=== PATIENT | male | born 1990 | race African-American/Black ===

== ENCOUNTER 2018-01-09 10:37 | Emergency (ER) | payer SELFPAY ==
[2018-01-09 10:40] VITALS: BP 134/88; PULSE 58; RESP 16; TEMP 37.1
--- NOTE | 2018-01-09 10:45 | DI.RAD_ITS ---
SYMPTOM/DIAGNOSIS: RT LATERAL KNEE PAIN, JUST PROXIMAL TO KNEE. TRAUMA RIGHT KNEE: Four views. Comparison 07/22/15 No acute fracture or dislocation is seen. Mild to moderate degenerative changes are seen in all 3 joint compartments with joint space narrowing and periarticular spurring. There is some flattening of the articular surfaces in the lateral femoral tibial joint. There does appear to be a joint effusion in the suprapatellar region. The soft tissues are otherwise unremarkable. IMPRESSION: 1. No acute fracture or dislocation. 2. Suprapatellar joint effusion 3. Mild to moderate degenerative changes of the right knee.
--- NOTE | 2018-01-09 10:46 | W.ED.GENAD ---
Discharge Plan Disposition Patient Disposition: HOME Condition: Good Discharge Details Chief Complaint: Orthopedic Clinical Impression: Right knee sprain Primary Care Provider: None,None ED Provider: Troy Navas Home Meds and New Rx's Prescriptions: New acetaminophen [Mapap Extra Strength] 500 MG tablet 1,000 mg PO Q6H 5 Days Qty: 60 RF: 0 lidocaine [Lidoderm] 1 PATCH patch 1 patch Topical Q24H Qty: 4 RF: 0 ibuprofen [Motrin IB] 200 MG tablet 600 mg PO Q6H 5 Days Qty: 60 RF: 0 Discharge Instructions Instructions: Knee Sprain (ED), RICE Therapy (ED) Additional Instructions: Please take medications as directed. Please use crutches if needed. Please continue to use ice, Tylenol, Motrin, and an Tylor wrap at home for control of the pain. If you notice any worsening of your symptoms, or any new symptoms such as vomiting, diarrhea, fever, chills, shortness of breath, chest pain, numbness, weakness, or fainting , please return immediately to the emergency department for reevaluation. Please follow up with your primary care provider as soon as possible for reassessment and reevaluation. As always, it was a pleasure participating in your medical care today. Stand Alone Forms: Work Release Discharge Data Discharge Date/Time-TO BE ENTERED AT DEPARTURE: 01/09/18 11:45 Medical Decision Making This is a very pleasant 27-year-old -[place] male with a previous surgical history of a lateral menisci repair on his right knee, who presents today for right-sided knee pain. The patient was playing basketball last night when he was struck in his knee, and then hit it a second time when he hit the floor. Physical exam demonstrates minimal swelling of the right knee, with some associated swelling and point tenderness just proximal to it in the lateral aspect of the knee. No patellar tenderness. No crepitus with movement. Physical exam shows signs and symptoms concerning for small hematoma and bruise. No evidence of significant laxity or weakness. Signs and symptoms appear clinically consistent with a strain of the right knee. Because of his previous surgery and the mechanism we will get an x-ray to rule out any fracture. We will treat with NSAIDs, and a Lidoderm patch. Patient does work at [employer] and states that he does do a mild to moderate amount of walking throughout the day. X-ray results have returned and do demonstrate evidence of a suprapatellar effusion. There appears to be no evidence of acute bony fracture. This does appear to be clinically consistent with his exam. Feel his pain is most likely secondary to his effusion and trauma. We will continue to treat with NSAID therapy, recommendations for ice, rest, and compression. We did offer crutches, and the patient made it very clear that he does not want any crutches at this time. Patient is able to ambulate well without difficulty. We discussed the importance of close follow-up with his PCP, as well as red flags which to immediately return the patient understands. With no signs of ligamentous laxity, no evidence of bony fracture, I feel he can be safely discharged home with close PCP follow-up. I have extensively reviewed the treatment plan and discharge instructions with the patient and their family. I have addressed all patient concerns at this time. The patient and family was made aware of what symptoms to monitor for that would warrant a return to the emergency department. Discussed the plan with the patient and family, they demonstrate verbal understanding and agreement with our assessment and plan at this time. IMPRESSION: 1. No acute fracture or dislocation. 2. Suprapatellar joint effusion 3. Mild to moderate degenerative changes of the right knee. HPI General Date/Time Provider Initiated Documentation: 01/09/18 10:38. HPI Narrative: This is a very pleasant 27-year-old -[place] male who has a past medical history of asthma as well as a surgical repair of his right lateral menisci a few years ago after an injury. He presents today for evaluation of knee pain. Patient states that last night he was playing basketball, struck the lateral aspect of his right knee against an opponent, fell to the ground and then hit it again. Since then he has had moderate pain on the right lateral aspect of the knee just proximal to the knee itself. He has had mild swelling, in association with the pain. Pain is made worse with movement, improved by nothing. He denies any numbness or tingling radiating down the leg but does have some associated tingling at the site of pain. He denies any hip pain, proximal leg pain or distal leg pain aside for the specified location. He denies any other aggravating or relieving factors. Patient denies hearing any new pops, denies any history of dislocation, denies any IV or illicit drug use or pertinent family history. He has no other complaints at this time. Related Data Home Medications Medication Instructions Recorded Confirmed acetaminophen [Mapap Extra 1,000 mg PO Q6H 5 Days #60 tab 01/09/18 Strength] ibuprofen [Motrin Ib] 600 mg PO Q6H 5 Days #60 tab 01/09/18 lidocaine [Lidoderm] 1 patch TOPICAL Q24H #4 patch 01/09/18 Previous Rx's Medication Instructions Recorded acetaminophen [Mapap Extra 1,000 mg PO Q6H 5 Days #60 tab 01/09/18 Strength] ibuprofen [Motrin Ib] 600 mg PO Q6H 5 Days #60 tab 01/09/18 lidocaine [Lidoderm] 1 patch TOPICAL Q24H #4 patch 01/09/18 Allergies Allergy/AdvReac Type Severity Reaction Status Date / Time No Known Allergies Allergy Unverified 01/09/18 10:44 General Stated Complaint: Orthopedic IVIS: 4 Review of Systems Review of Systems All systems reviewed & are unremarkable except as noted in HPI and below PFSH Arthroplasty of knee (08/19/15) Social History Smoking/Tobacco Use Status: Never Surgical History Arthroplasty of knee (08/19/15) Social History Smoking/Tobacco Use Status: Never Exam Narrative Exam Narrative: 1.Const: Well-nourished, Well-developed, appearing stated age 2.Eyes: PERRL, no conjunctival injection, and symmetrical lids. 3.ENT: Atraumatic external nose and ears. Moist MM. Neck: Symmetric, trachea midline, No thyromegaly. 4.CVS: +S1/S2, No murmurs or gallops. Peripheral pulses 2+ and equal in all extremities. Brisk capillary refill in all extremities. 5.RESP: Unlabored respiratory effort. Clear to auscultation bilaterally. No wheezes rales or rhonchi 6.GI: Soft, Nontender/Nondistended, No hepatosplenomegaly. No guarding or rebound. 7.MSK: No gross deformities or discolorations or lesions. Tolerates full range of motion of extremities without tenderness. All compartments of upper and lower extremities are soft with no tenderness. Vascular exam demonstrates brisk capillary refill and intact pulses in all extremities. Patient does demonstrate a notable broke bony prominence over the medial component of his right knee, which she states is been present since his previous surgery. Minimal swelling around the right knee, as well as a small hematoma on the proximal right lateral component of the right knee. This is the area consistent with the patient's pain which is reproducible. No significant pain with passive flexion or extension. Minimal pain with passive extension. Negative Alen's test, no laxity or tenderness with varus or valgus stressing, no laxity with anterior and posterior drawer testing. No other significant abnormalities of the knee. Patient ambulates with a mild limp 8.Skin: Warm, Dry. No rashes or lesions. 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 Sensation grossly intact, no focal neurologic deficits. 10.Psych: (AAO) x3. Appropriate mood and affect Course Vital Signs Temperature 37.1 C 01/09/18 10:40 Pulse 58 L 01/09/18 10:40 Respiratory Rate 16 01/09/18 10:40 Blood Pressure 134/88 01/09/18 10:40 Temperature 37.1 C 01/09/18 10:40 Temperature Source Skin 01/09/18 10:40 Pulse 58 L 01/09/18 10:40 Respiratory Rate 16 01/09/18 10:40 Respiratory Effort 01/09/18 10:42 Blood Pressure 134/88 01/09/18 10:40 Blood Pressure Position Sitting 01/09/18 10:40 Oxygen Delivery Method Room Air 01/09/18 10:40 Oxygen Flow Rate 0 01/09/18 10:40 Pain Level 6 01/09/18 10:42
[2018-01-09] MEDS: Ibuprofen 800 MG TAB PO (10:49)
[2018-01-09] MEDS: Acetaminophen 500 MG TAB 1000 MG PO (10:49)
[2018-01-09] MEDS: Lidocaine 5% Patch 1 PATCH TP (10:50)
--- NOTE | 2018-01-09 10:51 | ED.GENADUL_ITS ---
Discharge Plan Disposition Patient Disposition: HOME Condition: Good Discharge Details Chief Complaint: Orthopedic Clinical Impression: Right knee sprain Primary Care Provider: None,None ED Provider: Troy Navas Home Meds and New Rx's Prescriptions: New acetaminophen [Mapap Extra Strength] 500 MG tablet 1,000 mg PO Q6H 5 Days Qty: 60 RF: 0 lidocaine [Lidoderm] 1 PATCH patch 1 patch Topical Q24H Qty: 4 RF: 0 ibuprofen [Motrin IB] 200 MG tablet 600 mg PO Q6H 5 Days Qty: 60 RF: 0 Discharge Instructions Instructions: Knee Sprain (ED), RICE Therapy (ED) Additional Instructions: Please take medications as directed. Please use crutches if needed. Please continue to use ice, Tylenol, Motrin, and an Tylor wrap at home for control of the pain. If you notice any worsening of your symptoms, or any new symptoms such as vomiting, diarrhea, fever, chills, shortness of breath, chest pain, numbness, weakness, or fainting , please return immediately to the emergency department for reevaluation. Please follow up with your primary care provider as soon as possible for reassessment and reevaluation. As always, it was a pleasure participating in your medical care today. Stand Alone Forms: Work Release Discharge Data Discharge Date/Time-TO BE ENTERED AT DEPARTURE: 01/09/18 11:45 Medical Decision Making This is a very pleasant 27-year-old -[place] male with a previous surgical history of a lateral menisci repair on his right knee, who presents today for right-sided knee pain. The patient was playing basketball last night when he was struck in his knee, and then hit it a second time when he hit the floor. Physical exam demonstrates minimal swelling of the right knee, with some associated swelling and point tenderness just proximal to it in the lateral aspect of the knee. No patellar tenderness. No crepitus with movement. Physical exam shows signs and symptoms concerning for small hematoma and bruise. No evidence of significant laxity or weakness. Signs and symptoms appear clinically consistent with a strain of the right knee. Because of his previous surgery and the mechanism we will get an x-ray to rule out any fracture. We will treat with NSAIDs, and a Lidoderm patch. Patient does work at [employer] and states that he does do a mild to moderate amount of walking throughout the day. X-ray results have returned and do demonstrate evidence of a suprapatellar effusion. There appears to be no evidence of acute bony fracture. This does appear to be clinically consistent with his exam. Feel his pain is most likely secondary to his effusion and trauma. We will continue to treat with NSAID therapy, recommendations for ice, rest, and compression. We did offer crutches , and the patient made it very clear that he does not want any crutches at this time. Patient is able to ambulate well without difficulty. We discussed the importance of close follow-up with his PCP, as well as red flags which to immediately return the patient understands. With no signs of ligamentous laxity , no evidence of bony fracture, I feel he can be safely discharged home with close PCP follow-up. I have extensively reviewed the treatment plan and discharge instructions with the patient and their family. I have addressed all patient concerns at this time. The patient and family was made aware of what symptoms to monitor for that would warrant a return to the emergency department. Discussed the plan with the patient and family, they demonstrate verbal understanding and agreement with our assessment and plan at this time. IMPRESSION: 1. No acute fracture or dislocation. 2. Suprapatellar joint effusion 3. Mild to moderate degenerative changes of the right knee. HPI General Date/Time Provider Initiated Documentation: 01/09/18 10:38 . HPI Narrative: This is a very pleasant 27-year-old -[place] male who has a past medical history of asthma as well as a surgical repair of his right lateral menisci a few years ago after an injury. He presents today for evaluation of knee pain. Patient states that last night he was playing basketball, struck the lateral aspect of his right knee against an opponent, fell to the ground and then hit it again. Since then he has had moderate pain on the right lateral aspect of the knee just proximal to the knee itself. He has had mild swelling, in association with the pain. Pain is made worse with movement, improved by nothing. He denies any numbness or tingling radiating down the leg but does have some associated tingling at the site of pain. He denies any hip pain, proximal leg pain or distal leg pain aside for the specified location. He denies any other aggravating or relieving factors. Patient denies hearing any new pops, denies any history of dislocation, denies any IV or illicit drug use or pertinent family history. He has no other complaints at this time. Related Data Home Medications Medication Instructions Recorded Confirmed acetaminophen [Mapap Extra 1,000 mg PO Q6H 5 Days #60 tab 01/09/18 Strength] ibuprofen [Motrin Ib] 600 mg PO Q6H 5 Days #60 tab 01/09/18 lidocaine [Lidoderm] 1 patch TOPICAL Q24H #4 patch 01/09/18 Previous Rx's Medication Instructions Recorded acetaminophen [Mapap Extra 1,000 mg PO Q6H 5 Days #60 tab 01/09/18 Strength] ibuprofen [Motrin Ib] 600 mg PO Q6H 5 Days #60 tab 01/09/18 lidocaine [Lidoderm] 1 patch TOPICAL Q24H #4 patch 01/09/18 Allergies Allergy/AdvReac Type Severity Reaction Status Date / Time No Known Allergies Allergy Unverified 01/09/18 10:44 General Stated Complaint: Orthopedic IVIS: 4 Review of Systems Review of Systems All systems reviewed & are unremarkable except as noted in HPI and below PFSH Arthroplasty of knee (08/19/15) Social History Smoking/Tobacco Use Status: Never Surgical History Arthroplasty of knee (08/19/15) Social History Smoking/Tobacco Use Status: Never Exam Narrative Exam Narrative: 1.Const: Well-nourished, Well-developed, appearing stated age 2.Eyes: PERRL, no conjunctival injection, and symmetrical lids. 3.ENT: Atraumatic external nose and ears. Moist MM. Neck: Symmetric, trachea midline, No thyromegaly. 4.CVS: +S1/S2, No murmurs or gallops. Peripheral pulses 2+ and equal in all extremities. Brisk capillary refill in all extremities. 5.RESP: Unlabored respiratory effort. Clear to auscultation bilaterally. No wheezes rales or rhonchi 6.GI: Soft, Nontender/Nondistended, No hepatosplenomegaly. No guarding or rebound. 7.MSK: No gross deformities or discolorations or lesions. Tolerates full range of motion of extremities without tenderness. All compartments of upper and lower extremities are soft with no tenderness. Vascular exam demonstrates brisk capillary refill and intact pulses in all extremities. Patient does demonstrate a notable broke bony prominence over the medial component of his right knee, which she states is been present since his previous surgery. Minimal swelling around the right knee, as well as a small hematoma on the proximal right lateral component of the right knee. This is the area consistent with the patient's pain which is reproducible. No significant pain with passive flexion or extension. Minimal pain with passive extension. Negative Alen's test, no laxity or tenderness with varus or valgus stressing , no laxity with anterior and posterior drawer testing. No other significant abnormalities of the knee. Patient ambulates with a mild limp 8.Skin: Warm, Dry. No rashes or lesions. 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 Sensation grossly intact, no focal neurologic deficits. 10.Psych: (AAO) x3. Appropriate mood and affect Course Vital Signs Temperature 37.1 C 01/09/18 10:40 Pulse 58 L 01/09/18 10:40 Respiratory Rate 16 01/09/18 10:40 Blood Pressure 134/88 01/09/18 10:40 Temperature 37.1 C 01/09/18 10:40 Temperature Source Skin 01/09/18 10:40 Pulse 58 L 01/09/18 10:40 Respiratory Rate 16 01/09/18 10:40 Respiratory Effort 01/09/18 10:42 Blood Pressure 134/88 01/09/18 10:40 Blood Pressure Position Sitting 01/09/18 10:40 Oxygen Delivery Method Room Air 01/09/18 10:40 Oxygen Flow Rate 0 01/09/18 10:40 Pain Level 6 01/09/18 10:42
[2018-01-09 11:43] VITALS: BP 134/88; PULSE 58; RESP 16; TEMP 37.1; O2SAT 98
--- NOTE | 2018-01-09 11:44 | NUR.NOTE ---
Nursing Note: Patient refused crutches at this time. He was made aware of the risks to overuse. He was informed of RICE and educated on what to do when he gets home.
== END 2018-01-09 11:45 | disposition home or self-care (01) ==
LOC: ER 11:52
PROVIDERS: Emergency Provider Student in an Organized Health Care Education/Training Program
DX: S83.91XA Sprain of unspecified site of right knee, initial encounter (principal); M25.461 Effusion, right knee; W50.1XXA Accidental kick by another person, initial encounter; Y93.67 Activity, basketball
CPT/HCPCS: 73562; 99283

== ENCOUNTER 2018-05-24 09:30 | Emergency (ER) | payer SELFPAY ==
--- NOTE | 2018-05-24 09:31 | W.ED.GENAD ---
Discharge Plan Disposition Patient Disposition: HOME Condition: Stable Discharge Details Chief Complaint: Orthopedic Clinical Impression: Contusion of knee, right, Contusion of right little finger Primary Care Provider: None,None ED Provider: Octavio Chavez Home Meds and New Rx's Prescriptions: No Action escitalopram oxalate [Lexapro] 20 mg Tablet 20 mg PO DAILY RF: 0 Discharge Instructions Instructions: Contusion in Adults (ED) Additional Instructions: if pain continues follow up with your orthopedist you can take 1000mg tylenol and 600mg ibuprofen every 6 hours for pain as needed Stand Alone Forms: Work Release Medical Decision Making 28 yo male comes in with right knee and right pinky pain since Monday. He states he has had issues with his knee on the right and had meniscus surgery in the past. On Monday he was playing [email or web address] and his anterior right knee collided with another player and he hit his right pinky on the ground, denies hitting head or loc. He has anterior and medial knee pain since with weight bearing and palpation. He has no palpable or visible deformity to the knee. He has full rom without erythema or redness. Suspect contusion vs meniscus injury, will xray to eval for fx. HAs pain over the pip joint of the right pinky with full rom, intact sensation and no warmth or swelling. Suspect contusion vs sprain but will xray to eval for fx, no findings to suggest tendon or neurovascular injury xray negative on my read of finger and knee, will d/c and advised f/u with his orthopedist if pain continues Differential Diagnosis contusion, sprain, fx, meniscus injury Imaging Data Radiologic Study: Attestation: I personally reviewed and interpreted this imaging study as follows: Imaging: X-Ray My impression: no acute findings finger xray Radiologic Study #2: Attestation: I personally reviewed and interpreted this imaging study as follows: Imaging: X-Ray My impression: no acute findings knee xray HPI General Mode of arrival: ambulatory. Date/Time Provider Initiated Documentation: 05/24/18 09:31. Limitations to Documentation: no limitations. Information obtained by: patient. History of Present Illness 28 year old M presents to the emergency department with the chief complaint of right knee pain, described as moderate, and is localized to the right and lower extremity. Patient reports no radiation. Patient started experiencing this day(s) (3) and it has been constant. No relieving factors improve symptom(s), No exacerbating factors reported . Patient notes other (right pinky pain). Related Data Home Medications Medication Instructions Recorded Confirmed escitalopram oxalate [Lexapro] 20 mg PO DAILY 05/24/18 05/24/18 Allergies Allergy/AdvReac Type Severity Reaction Status Date / Time No Known Allergies Allergy Unverified 05/24/18 09:35 General IVIS: 4 Review of Systems Review of Systems All systems reviewed & are unremarkable except as noted in HPI and below Constitutional Denies chills and Denies fever(s) Cardiovascular Denies chest pain and Denies dyspnea Respiratory Denies cough and Denies dyspnea Gastrointestinal Denies abdominal pain, Denies nausea and Denies vomiting Integumentary/Breasts Denies rash [facility] Surgical History Arthroplasty of knee (08/19/15) Social History Smoking/Tobacco Use Status: Never Drug use: Never Do you feel safe in your relationship?: Yes Exam Const General: no acute distress Orientation: alert HENMT Head: normal to inspection Ears: external ears normal General nose exam: external nose normal Mouth: moist mucous membranes Eyes General: appearance normal, both eyes and all related structures Neck Neck: normal visual inspection Resp Effort & Inspection: normal respiratory effort and able to speak in complete sentences Cardio Rate: regular rate Skin General skin exam: no rashes or lesions noted Neuro General: alert and oriented x3 Extrem General: normal to inspection Psych Mental Status: mental status grossly normal
[2018-05-24 09:33] VITALS: BP 120/66; PULSE 52; RESP 20; TEMP 36.8; O2SAT 96
--- NOTE | 2018-05-24 09:38 | DI.RAD_ITS ---
SYMPTOM/DIAGNOSIS: PAIN, S/P FALL RIGHT LITTLE FINGER: An AP view of the hand and two additional views of the little finger were obtained. There is an apparent fracture of the radial aspect of the base of the proximal phalanx of the little finger, presumably acute. Please correlate with site of the patient's injury. RIGHT KNEE: Four views were obtained. There is deformity of the articular surface of the medial femoral condyle and narrowing of the cartilaginous joint space. Prominent hypertrophic changes noted associated with the patellofemoral joint as well. The findings may be post traumatic however there is no evidence of acute fracture.
--- NOTE | 2018-05-24 09:42 | ED.GENADUL_ITS ---
Discharge Plan Disposition Patient Disposition: HOME Condition: Stable Discharge Details Chief Complaint: Orthopedic Clinical Impression: Contusion of knee, right, Contusion of right little finger Primary Care Provider: None,None ED Provider: Octavio Chavez Home Meds and New Rx's Prescriptions: No Action escitalopram oxalate [Lexapro] 20 mg Tablet 20 mg PO DAILY RF: 0 Discharge Instructions Instructions: Contusion in Adults (ED) Additional Instructions: if pain continues follow up with your orthopedist you can take 1000mg tylenol and 600mg ibuprofen every 6 hours for pain as needed Stand Alone Forms: Work Release Medical Decision Making 28 yo male comes in with right knee and right pinky pain since Monday. He states he has had issues with his knee on the right and had meniscus surgery in the past. On Monday he was playing [employer] and his anterior right knee collided with another player and he hit his right pinky on the ground, denies hitting head or loc. He has anterior and medial knee pain since with weight bearing and palpation. He has no palpable or visible deformity to the knee. He has full rom without erythema or redness. Suspect contusion vs meniscus injury, will xray to eval for fx. HAs pain over the pip joint of the right pinky with full rom, intact sensation and no warmth or swelling. Suspect contusion vs sprain but will xray to eval for fx, no findings to suggest tendon or neurovascular injury xray negative on my read of finger and knee, will d/c and advised f/u with his orthopedist if pain continues Differential Diagnosis contusion, sprain, fx, meniscus injury Imaging Data Radiologic Study: Attestation: I personally reviewed and interpreted this imaging study as follows: Imaging: X-Ray My impression: no acute findings finger xray Radiologic Study #2: Attestation: I personally reviewed and interpreted this imaging study as follows: Imaging: X-Ray My impression: no acute findings knee xray HPI General Mode of arrival: ambulatory . Date/Time Provider Initiated Documentation: 05/24/18 09:31 . Limitations to Documentation: no limitations . Information obtained by: patient . History of Present Illness 28 year old M presents to the emergency department with the chief complaint of right knee pain, described as moderate, and is localized to the right and lower extremity. Patient reports no radiation. Patient started experiencing this day(s) (3) and it has been constant. No relieving factors improve symptom(s), No exacerbating factors reported . Patient notes other (right pinky pain). Related Data Home Medications Medication Instructions Recorded Confirmed escitalopram oxalate [Lexapro] 20 mg PO DAILY 05/24/18 05/24/18 Allergies Allergy/AdvReac Type Severity Reaction Status Date / Time No Known Allergies Allergy Unverified 05/24/18 09:35 General IVIS: 4 Review of Systems Review of Systems All systems reviewed & are unremarkable except as noted in HPI and below Constitutional Denies chills and Denies fever(s) Cardiovascular Denies chest pain and Denies dyspnea Respiratory Denies cough and Denies dyspnea Gastrointestinal Denies abdominal pain, Denies nausea and Denies vomiting Integumentary/Breasts Denies rash [facility] Surgical History Arthroplasty of knee (08/19/15) Social History Smoking/Tobacco Use Status: Never Drug use: Never Do you feel safe in your relationship?: Yes Exam Const General: no acute distress Orientation: alert HENMT Head: normal to inspection Ears: external ears normal General nose exam: external nose normal Mouth: moist mucous membranes Eyes General: appearance normal, both eyes and all related structures Neck Neck: normal visual inspection Resp Effort & Inspection: normal respiratory effort and able to speak in complete sentences Cardio Rate: regular rate Skin General skin exam: no rashes or lesions noted Neuro General: alert and oriented x3 Extrem General: normal to inspection Psych Mental Status: mental status grossly normal
[2018-05-24] MEDS: Acetaminophen 500 MG TAB 1000 MG PO (10:17)
[2018-05-24 10:42] VITALS: BP 120/66; PULSE 52; RESP 20; TEMP 36.8; O2SAT 98
== END 2018-05-24 10:40 | disposition home or self-care (01) ==
PROVIDERS: Emergency Provider Emergency Medicine
DX: S80.01XA Contusion of right knee, initial encounter (principal); S60.151A Contusion of right little finger with damage to nail, initial encounter; W01.0XXA Fall on same level from slipping, tripping and stumbling without subsequent striking against object, initial encounter; Y93.67 Activity, basketball
CPT/HCPCS: 29505; 73562; 99284; 73140; L1820

== ENCOUNTER 2018-11-12 09:15 | Emergency (ER) | payer SELFPAY ==
[2018-11-12 09:18] VITALS: BP 114/74; PULSE 58; RESP 14; TEMP 37.2; O2SAT 97
--- NOTE | 2018-11-12 09:40 | ED.GENADUL_ITS ---
Discharge Plan Disposition Patient Disposition: HOME Condition: Good Discharge Details Chief Complaint: DentalOral Clinical Impression: Abscess, dental Primary Care Provider: None,None ED Provider: Yasmeen Sears Home Meds and New Rx's Prescriptions: New penicillin V potassium 500 mg tablet 500 mg PO QID Qty: 40 RF: 0 No Action dextroamphetamine-amphetamine [Adderall] 20 mg Tablet 20 mg PO DAILY RF: 0 escitalopram oxalate [Lexapro] 20 mg Tablet 20 mg PO DAILY RF: 0 Discharge Instructions Instructions: Dental Abscess (ED) Additional Instructions: Warm salt water rinses after every time you eat or drink Use Motrin or Tylenol for soreness if needed. Use antibiotic as prescribed for 10 days. Follow-up with local dentist. Return for any worsening, concerns, difficulty eating or drinking, increase in facial swelling or fever or for lack of improvement as discussed if needed sooner Medical Decision Making Very pleasant 28-year-old man presents for dental abscess. Status post trauma to the right jawline. No concern for fracture. Moderately sized abscess which obvious fluctuation to the right lower jawline. Discussed with patient who consents to incision and drainage at this time. Area anesthetized with lidocaine 1%, 11 blade used to make incision. Moderate amount of purulent drainage expressed, suction used. Patient has no associated complication. Immediate relief of significant swelling of the right jawline. No associated trismus. No complications status post procedure. Discharged with penicillin, conservative treatments discussed. The patient was stable and requested discharge. Prior to discharge, my usual and customary return precautions were reviewed with the patient - this included follow-up instructions and reasons to return to the Emergency Department if conditions worsens, does not improve as expected, or other new concerns arise. HPI General Date/Time Provider Initiated Documentation: 11/12/18 09:18 . HPI Narrative: Very pleasant 28-year-old patient presents for complaints of dental abscess. Patient reports he was struck in the face when he was playing basketball and fractured his tooth partially. Patient reports that since injury occurred 4 days ago he has had increase in facial swelling now seems to have a developing abscess. Patient is not concerned with jaw fracture. Patient denies any difficulty with range of motion of his jaw. Does report mild pain eating and drinking now due to size of infection. Patient reports fever on day 1 since resolved entirely. Patient denies headache or dizziness. Denies any chills. Feeling well otherwise. No associated malaise. Right lower jaw pain as discussed. Related Data Home Medications Medication Instructions Recorded Confirmed escitalopram oxalate [Lexapro] 20 mg PO DAILY 05/24/18 11/12/18 dextroamphetamine-amphetamine 20 mg PO DAILY 11/12/18 11/12/18 [Adderall] penicillin V potassium 500 mg PO QID #40 tab 11/12/18 Previous Rx's Medication Instructions Recorded penicillin V potassium 500 mg PO QID #40 tab 11/12/18 Allergies Allergy/AdvReac Type Severity Reaction Status Date / Time No Known Allergies Allergy Unverified 11/12/18 09:27 General Stated Complaint: DentalOral IVIS: 4 Review of Systems Review of Systems ROS Unobtainable: All systems reviewed & are unremarkable except as noted in HPI and below Constitutional Constitutional: Denies chills, Denies lethargy and Denies night sweats ENT Ears, Nose, Mouth, and Throat: Reports dental pain, Denies ear discharge, Denies nasal congestion, Denies sinus pain and Denies sore throat Gastrointestinal Gastrointestinal: Denies nausea and Denies vomiting [facility] Social History Smoking/Tobacco Use Status: Never Drug use: Never Do you feel safe at home: Yes Do you feel safe in your relationship?: Yes Exam Narrative Exam Narrative: CONST: Healthy appearing patient, in no acute distress. Well hy drated. Alert and alert. HENMT: Head nomocephalic, normal to inspection. Atraumatic. Hearing grossly normal. Large right lower dental abscess with moderate fluctuation and swelling at the lower lateral gumline. Dental caries present. EYES: General normal appearance. Alignment normal. Eyelids normal. Conjunctiva normal. NECK: Normal visual inspection. FROM. Trachea midline. No Midline tenderness. Cervical lymphadenopathy present MUSCULOSKELETAL: Normal Gait. FROM of all extremities. SKIN: Normal. Dry. No rashes. NEURO: Alert and awake. Speech clear. PSYCH: Normal affect. Cooperative. Course Vital Signs Vital signs: Vital Signs Temperature 37.2 C 11/12/18 09:18 Pulse 58 L 11/12/18 09:18 Respiratory Rate 14 11/12/18 09:18 Blood Pressure 114/74 11/12/18 09:18 Pulse Oximetry 97 11/12/18 09:18 Temperature 37.2 C 11/12/18 09:18 Temperature Source Skin 11/12/18 09:18 Pulse 58 L 11/12/18 09:18 Respiratory Rate 14 11/12/18 09:18 Respiratory Effort 11/12/18 09:37 Blood Pressure 114/74 11/12/18 09:18 Blood Pressure Position Sitting 11/12/18 09:18 Pulse Oximetry 97 11/12/18 09:18 Oxygen Delivery Method Room Air 11/12/18 09:18 Oxygen Flow Rate 0 11/12/18 09:18 Pain Level 8 11/12/18 09:37 Comment 11/12/18 09:18 Procedures Abscess I/D Site: Other (Dental abscess right lower posterior) Side (if applicable): Right Local Anesthetic: Lidocaine 1% Amount of anesthesia used (mL): 2 Technique: Incised with #11 Blade Amount of fluid expressed (mL): 3 Irrigation: No Packing used?: None
[2018-11-12] MEDS: Penicillin V POTASSIUM 500 MG TAB PO (10:28)
== END 2018-11-12 10:31 | disposition home or self-care (01) ==
LOC: ER 10:37
PROVIDERS: Emergency Provider Physician Assistant
DX: K04.7 Periapical abscess without sinus (principal)
CPT/HCPCS: 10060; 99283